=== PATIENT | female | born 1980 | race Caucasian/White ===

== ENCOUNTER 2017-07-19 18:56 | Emergency (ER) | payer BC ==
[2017-07-19 19:10] VITALS: RESP 18; TEMP 98.4
[2017-07-19 20:03] VITALS: BP 157/96; PULSE 103; O2SAT 98
== END 2017-07-19 20:10 | disposition home or self-care (01) ==
LOC: ED 18:56
DX: N76.0 Acute vaginitis (principal)
CPT/HCPCS: 87210; 87220; 99283

== ENCOUNTER 2017-11-07 19:02 | Emergency (ER) | payer BC ==
[2017-11-07 19:08] VITALS: PULSE 84; RESP 20
[2017-11-07 19:44] VITALS: BP 104/73; TEMP 96.6; O2SAT 96
== END 2017-11-07 19:42 | disposition home or self-care (01) ==
LOC: ED 19:02
DX: L72.3 Sebaceous cyst (principal)
CPT/HCPCS: 99282

== ENCOUNTER 2018-02-07 14:23 | Emergency (ER) | payer BC ==
[2018-02-07 14:55] VITALS: TEMP 97.1
[2018-02-07 15:01] LABS: BASOPHILS % (AUTO) 1 % (0-3); EOSINOPHILS % (AUTO) 1 % (0-9); HEMATOCRIT 37 % (35-47); HEMOGLOBIN 12.6 gm/dl (12.0-15.5); LYMPHOCYTES % (AUTO) 18.7 % (10-50); MEAN CORPUSCULAR HEMOGLOBIN 29.2 pg (27.0-32.0); MEAN CORPUSCULAR HGB CONC 33.7 gm/dl (32.0-36.0); MEAN CORPUSCULAR VOLUME 87 fL (81-99); MONOCYTES % (AUTO) 6.2 % (0-12); NEUTROPHILS % (AUTO) 73.4 % (37-80)
[2018-02-07 15:19] LABS: ALBUMIN 3.7 gm/dl (3.4-5.0); ALKALINE PHOSPHATASE 46 IU/L (46-116); ALT 21 IU/L (14-63); AST 11 IU/L (15-37); BILIRUBIN,TOTAL 0.2 mg/dl (0.2-1.0); BLOOD UREA NITROGEN 23 mg/dl (7-18); CALCIUM 8.5 mg/dl (8.5-10.1); CARBON DIOXIDE 24.9 mEq/L (21-32); CHLORIDE 103 mMol/L (98-107); CREATININE 0.77 mg/dl (0.60-1.00); GLOM FILT RATE 85 mL/min (>60); GLUCOSE 110 mg/dl (74-106); SODIUM 136 mMol/L (136-145); TROP I < 0.017 ng/ml (0.000-0.056)
[2018-02-07] MEDS ORDERED: KETOROLAC TROMETHAMINE 30 MG/ML SOL IV ONE (15:46)
[2018-02-07] MEDS ORDERED: KETOROLAC TROMETHAMINE 30 MG/ML SOL ONE (15:51)
[2018-02-07] MEDS ORDERED: SODIUM CHLORIDE 0.9% FLUSH 10 ML SOL IV PRN (15:57)
[2018-02-07 16:00] LABS: APPEARANCE,URINE Clear; BILIRUBIN,URINE NEGATIVE (NEGATIVE); COLOR,URINE Yellow; GLUCOSE, URINE (UA) NEGATIVE (NEGATIVE); KETONES,URINE NEGATIVE (NEGATIVE); LEUKOCYTE ESTERASE ,URINE NEGATIVE (NEGATIVE); NITRATE,URINE NEGATIVE (NEGATIVE); OCCULT BLOOD,URINE NEGATIVE (NEG-TRACE); UROBILINOGEN,URINE 0.2 (0.2-1.0 EU)
[2018-02-07 16:06] LABS: BACTERIA 1+ (< 1+); CRYSTALS NEGATIVE (0-3 AVE/HPF); RBC,URINE 0-2 (0-3AV/HPF); WBC,URINE 0-2 (0-5AV/HPF)
[2018-02-07 16:15] VITALS: BP 116/81; PULSE 79; O2SAT 97
[2018-02-07 16:17] VITALS: RESP 16
== END 2018-02-07 16:30 | disposition home or self-care (01) ==
LOC: ED 14:23
DX: R07.89 Other chest pain (principal); R51 Headache
CPT/HCPCS: 71045; 80053; 81001; 84484; 84703; 85025; 85378; 93005; 99285; J1885

== ENCOUNTER 2018-07-29 22:59 | Emergency (ER) | payer BC ==
[2018-07-29 23:22] VITALS: BP 120/80; PULSE 101; RESP 16; TEMP 98; O2SAT 99
== END 2018-07-29 23:50 | disposition home or self-care (01) ==
LOC: ED 22:59
DX: S90.111A Contusion of right great toe without damage to nail, initial encounter (principal)
CPT/HCPCS: 73630; 99282

== ENCOUNTER 2018-09-01 19:27 | Emergency (ER) | payer BC ==
[2018-09-01] MEDS ORDERED: SODIUM CHLORIDE 0.9% 1000ML 1,000 ML IV ONE (19:40)
[2018-09-01] MEDS ORDERED: KETOROLAC TROMETHAMINE 30 MG/ML SOL IV ONE (19:41)
[2018-09-01] MEDS ORDERED: DIPHENHYDRAMINE 50 MG/ML SOL IV ONE (19:41)
[2018-09-01] MEDS ORDERED: PROCHLORPERAZINE EDISYLATE 5 MG/ML SOL IV ONE (19:41)
[2018-09-01] MEDS ORDERED: KETOROLAC TROMETHAMINE 30 MG/ML SOL ONE (19:45)
[2018-09-01] MEDS ORDERED: DIPHENHYDRAMINE 50 MG/ML SOL ONE (19:45)
[2018-09-01] MEDS ORDERED: PROCHLORPERAZINE EDISYLATE 5 MG/ML SOL ONE (19:45)
[2018-09-01 20:14] VITALS: RESP 18; TEMP 98.3
[2018-09-01 21:01] VITALS: BP 120/73; PULSE 86; O2SAT 99
== END 2018-09-01 21:20 | disposition home or self-care (01) ==
LOC: ED 19:27
DX: G43.909 Migraine, unspecified, not intractable, without status migrainosus (principal)
CPT/HCPCS: 96365; 96374; 96375; 99283; J0780; J1200; J1885